=== PATIENT | male | born 1960 | race Caucasian/White ===

== ENCOUNTER → 2018-06-04 | Day surgery (SDC) | payer OTHER ==
[2018-06-01 11:24] LABS: BASOPHILS # (AUTO) 0.1 (0.0-0.1); BASOPHILS % 0.9 % (0.0-1.0); EOSINOPHILS # (AUTO) 0.3 (0.0-0.4); EOSINOPHILS % 3.4 % (0.0-6.0); HEMOGLOBIN 13.5 g/dL (14.0-18.0); LYMPHOCYTES # (AUTO) 3.2 (1.0-3.2); LYMPHOCYTES % 39.8 % (18.0-39.1); MEAN CORPUSCULAR HEMOGLOBIN 29.3 pg (28-32); MEAN CORPUSCULAR HGB CONC 32.9 g/dL (31-35); MEAN CORPUSCULAR VOLUME 89.1 fL (81-99); MONOCYTES # (AUTO) 0.6 (0.2-0.8); NEUTROPHILS # (AUTO) 3.9 (2.1-6.9); NEUTROPHILS % 48.7 % (38.7-80.0); PLATELET COUNT 212 x10e3/uL (140-360); RED CELL DISTRIBUTION WIDTH 14.1 % (11.7-14.4)
[~2018-06-04] MED LIST: ALPRAZOLAM0.5 MG PO; ATENOLOL PO; ATORVASTATIN CA20 MG PO; ATORVASTATIN CA40 MG PO; ESCITALOPRAM OX10 MG PO; FENTANYL CITRATE/PF 100MCG/2 ML INJ ONE; FLOMAX0.4 MG PO; HYOSCYAMINE SULFATE 0.5 MG/ML AMP ONE; LEVAQUIN500 MG PO; LIDOCAINE HCL 2% LOCAL INJ 5 ML SDV VIAL INJ ONE; LISINOPRIL10 MG PO; MIDAZOLAM HCL 2 MG/2 ML VIAL ONE; PLAVIX75 MG PO; PROPOFOL IV EMULSION 10 MG/ML 50 ML VIAL ONE; TENORMIN100 MG PO; TYLENOL WITH C1 EACH PO; VESICARE5 MG; XANAX1 MG PO; ZESTRIL20 MG PO
--- NOTE | 2018-06-04 12:24 | Operative Report ---
DATE OF PROCEDURE: June 04, 2018 REFERRING PHYSICIAN: Dr. Gefof Alcocer PROCEDURES PERFORMED 1. Esophagogastroduodenoscopy with biopsies. 2. Colonoscopy with polypectomy and biopsies. INDICATIONS FOR EGD: Dyspepsia. INDICATIONS FOR COLONOSCOPY: Persistent diarrhea and history of Crohn disease, rule out IBD exacerbation. MEDICATION: Patient was done under MAC. Please see anesthesiologist's note. PROCEDURE: With the patient in the left lateral decubitus position, the flexible fiberoptic Olympus gastroscope was introduced into the esophagus under direct visualization without any difficulty. There was some patchy erythema noted in the distal esophagus. The scope was then advanced with ease into the stomach. Mucosa overlying the antrum and the body revealed some patchy erythema and low-grade edema, and biopsies were obtained and sent to stain for H. pylori. The pylorus was of normal contour and shape. It was intubated with ease, and the scope was advanced all the way to the 2nd portion of the duodenum. Some aphthous-like ulcers were noted in the bulb and the proximal 2nd portion. Biopsies were obtained from the proximal 2nd portion to rule out sprue. The scope was then withdrawn back into the stomach and retroflexed. Mucosa overlying the fundus and the cardia appeared to be within normal limits. The scope was then straightened out. It was subsequently withdrawn. Patient tolerated the procedure well. IMPRESSION 1. Distal esophagitis. 2. Gastritis, biopsied. Biopsies sent to stain for H. pylori. 3. Duodenal ulcers, aphthous-like, bulb and proximal 2nd portion. 4. Rule out sprue. PLAN: Follow up histology. Initiate Protonix 40 mg 1 p.o. q.a.m. a.c. The patient was then turned around. After adequate lubrication of the anal canal, a flexible fiberoptic Olympus colonoscope was inserted into the rectum with ease and advanced all the way to the ileocolic anastomosis. There were some aphthous-like ulcerations noted at the anastomosis, and biopsies were obtained. The scope was then advanced into the terminal ileum, and it was ulcerated and biopsies were obtained. The scope was then withdrawn back into the colon. It was then withdrawn slowly, and mucosa overlying the transverse colon grossly appeared to be within normal limits. An approximately 8-mm sessile polyp was snared from the transverse colon. Mucosa overlying the left colon revealed some patchy mild inflammatory changes, and biopsies were obtained. One polyp was hot biopsied from the sigmoid colon. One polyp was hot biopsied from the rectum. The scope was then retroflexed into the distal rectum, and small internal hemorrhoids were noted, none of which was actively bleeding. The scope was then straightened out. It was subsequently withdrawn after securing an adequate stool specimen that was sent for the appropriate stool studies. Patient tolerated the procedure well. IMPRESSION 1. Ileitis, biopsied. 2. Aphthous-like ulcers at the ileocolic anastomosis. Biopsies were obtained. 3. Transverse colon polyps, snared. 4. Mild, patchy, left-sided colitis. 5. Sigmoid colon polyp, hot biopsied. 6. Rectal polyp, hot biopsied. 7. Internal hemorrhoids, none actively bleeding. PLAN: Follow up histology. Follow up stool studies. Check CRP and sed rate. Initiate VSL #3 one p.o. daily and Bentyl 20 mg 1 p.o. t.i.d. Start Imuran 50 mg 1 p.o. daily pending TPMT level. Patient might benefit from a followup colonoscopy in 3 years. Job#: [id number] cc:JENN ALCOCER DO
[2018-06-04 14:50] LABS: C DIFFICILE TOXIN A&B AMP PROB NEGATIVE (NEGATIVE); WBC,FECAL (FECAL LACTOFERRIN) POSITIVE (NEGATIVE)
== END | disposition home or self-care (01) ==
LOC: OR 09:13
PROVIDERS: ATTEND Internal Medicine Gastroenterology
DX: K51.50 Left sided colitis without complications (principal); D12.3 Benign neoplasm of transverse colon; D12.5 Benign neoplasm of sigmoid colon; D12.8 Benign neoplasm of rectum; K29.70 Gastritis, unspecified, without bleeding; K20.9 Esophagitis, unspecified; K26.9 Duodenal ulcer, unspecified as acute or chronic, without hemorrhage or perforation; Z98.0 Intestinal bypass and anastomosis status; K64.8 Other hemorrhoids; I10 Essential (primary) hypertension; Z88.6 Allergy status to analgesic agent; Z01.810 Encounter for preprocedural cardiovascular examination; Z01.812 Encounter for preprocedural laboratory examination; Z79.02 Long term (current) use of antithrombotics/antiplatelets; Z68.36 Body mass index [BMI] 36.0-36.9, adult; Z86.73 Personal history of transient ischemic attack (TIA), and cerebral infarction without residual deficits; Z87.891 Personal history of nicotine dependence; Z83.79 Family history of other diseases of the digestive system
CPT/HCPCS: 36415 ×2; 43239; 45380; 45384; 45385; 83630; 83993; 85025; 85651; 86140; 87045; 87177; 87328; 87493; 93005; J1980; J2001; J2250; 45378

== ENCOUNTER 2019-07-25 17:01 | Inpatient (IN) | payer OTHER ==
[~2019-07-25] VITALS: Ht 172.7 cm; Wt 111.6 kg
[~2019-07-25 17:01] MED LIST changes: -FENTANYL CITRATE/PF 100MCG/2 ML INJ ONE; -HYOSCYAMINE SULFATE 0.5 MG/ML AMP ONE; -LIDOCAINE HCL 2% LOCAL INJ 5 ML SDV VIAL INJ ONE; -MIDAZOLAM HCL 2 MG/2 ML VIAL ONE; -PROPOFOL IV EMULSION 10 MG/ML 50 ML VIAL ONE
--- OUTSIDE RECORDS SUMMARY | 2019-07-25 17:06 | XMS REPORT ---
Author Author [facility] Address Unknown Phone Unavailable Care Team Providers Care Software Developer Mid Level Name Role Phone Unavailable Unavailable Payers Payer Name Policy Type Policy Number Effective Date Expiration Date Problems This patient has no known problems. Allergies, Adverse Reactions, Alerts Allergy Name Allergy Type Status Severity Reaction(s) Onset Date Inactive Date Treating Clinician Comments No Known Drug Allergies DA Active U 2019-06-05 00:00:00 No Known Allergies DA Active U 2015-11-05 00:00:00 Medications This patient has no known medications.
[2019-07-25] MEDS ORDERED: SODIUM CHLORIDE 0.9% 1000ML 2,000 ML ONE (17:22)
[2019-07-25] MEDS ORDERED: SODIUM CHLORIDE 0.9% 1000ML 1,000 ML IV ONE ×2 (17:30)
[2019-07-25 17:34] LABS: BASOPHILS % 0.3 % (0.0-1.0); EOSINOPHILS # (AUTO) 0.1 (0.0-0.4); EOSINOPHILS % 1.1 % (0.0-6.0); HEMATOCRIT 34.1 % (38.2-49.6); HEMOGLOBIN 11.5 g/dL (14.0-18.0); LYMPHOCYTES # (AUTO) 3.3 (1.0-3.2); LYMPHOCYTES % 26.9 % (18.0-39.1); MEAN CORPUSCULAR HEMOGLOBIN 29.6 pg (28-32); MEAN CORPUSCULAR HGB CONC 33.7 g/dL (31-35); MEAN CORPUSCULAR VOLUME 87.7 fL (81-99); MONOCYTES # (AUTO) 0.7 (0.2-0.8); MONOCYTES % 5.3 % (4.4-11.3); NEUTROPHILS % 65.9 % (38.7-80.0); PLATELET COUNT 215 x10e3/uL (140-360); RED BLOOD COUNT 3.89 x10e6/uL (4.3-5.7); RED CELL DISTRIBUTION WIDTH 14.6 % (11.7-14.4)
--- NOTE | 2019-07-25 17:36 | NUR ---
PT PLACED IN TRENDELENDURG POSITION
[2019-07-25 17:54] LABS: ALBUMIN 3.8 g/dL (3.5-5.0); ALBUMIN/GLOBULIN RATIO 1.3 (0.8-2.0); ANION GAP 14.1 mmol/L (8-16); CALCIUM 9.1 mg/dL (8.4-10.2); CREATININE, SERUM 4.01 mg/dL (0.72-1.25); POTASSIUM 4.1 mmol/L (3.5-5.1)
[2019-07-25 18:19] LABS: CREATINE KINASE MB 2.6 ng/mL (0-5.0)
[2019-07-25] MEDS ORDERED: LIDOCAINE HCL 1% LOCAL INJ 20 ML VIAL ONE (18:32)
--- NOTE | 2019-07-25 18:40 | NUR ---
per pt he smoked a little pot prior to seeing his dr
--- NOTE | 2019-07-25 19:11 | NUR ---
PATIENT REFUSING TO HAVE DAVIS CATH, DISCUSSED THIS IN DETAIL WITH DR CARLSON, EXPRESSED CONCERN FOR NON-URINATION SINCE BEING IN THIS HOSPITAL
[2019-07-25 19:22] LABS: B-TYPE NATRIURETIC PEPTIDE2 < 10.0 pg/mL (0-100)
[2019-07-25] MEDS ORDERED: ONDANSETRON HCL INJ 2MG/ML 2ML 2 MG/ML VIAL IV PRN (19:45)
[2019-07-25] MEDS ORDERED: SODIUM CHLORIDE 0.9% 1000ML 1,000 ML IV STA (19:52)
--- NOTE | 2019-07-25 20:06 | NUR ---
BEDSIDE BLADDER SCAN DONE=75CC TOTAL IN BLADDER, ORDERS OBTAINED FOR DAVIS CATH SECONDARY TO ACUTE KIDNEY FAILURE, 18FR URETRHAL COUDE INSERTED, ONLY 75CC OUT, INFORMED DR WARD IN FULL, STERILE TECHNIQUE USED, PATIENT EXPERIENCED NO COMPLICATIONS IN PROCEDURE
[2019-07-25 20:14] LABS: BILIRUBIN,URINE NEGATIVE (NEGATIVE); CLARITY,URINE SL CLOUDY (CLEAR); COLOR,URINE YELLOW (YELLOW); KETONES,URINE NEGATIVE (NEGATIVE); LEUKOCYTE ESTERASE ,URINE NEGATIVE (NEGATIVE); NITRITE,URINE NEGATIVE (NEGATIVE); PROTEIN,URINE DIPSTICK NEGATIVE (NEGATIVE); URINE UROBILINOGEN 0.2 mg/dL (0.2 - 1)
[2019-07-25 20:26] LABS: AMORPHOUS SEDIMENT,URINE MODERATE (FEW); BACTERIA,URINE MODERATE /HPF; CALCIUM OXALATE CRYSTALS,UR FEW (FEW); EPITHELIAL CELLS,URINE FEW /LPF; MUCUS,URINE FEW (RARE)
[2019-07-25 20:57] LABS: ANION GAP 12.3 mmol/L (8-16); CALCIUM 8.3 mg/dL (8.4-10.2); CREATININE, SERUM 3.28 mg/dL (0.72-1.25); POTASSIUM 4.3 mmol/L (3.5-5.1)
[2019-07-25] MEDS ORDERED: HYDROCODONE/APAP 10MG-325MG TAB PO ONE (21:15)
--- NOTE | 2019-07-25 21:21 | Diagnostic Imaging Report ---
Examination: CT head without contrast Clinical Indication: Syncope. Technique: Transaxial noncontrast images from the skull base through the vertex were obtained. Sagittal and coronal reformatted images were done. Dose modulation, iterative reconstruction, and/or weight based adjustment of the mA/kV was utilized to reduce the radiation dose to as low as reasonably achievable. Comparison: None. Findings: Scalp: No abnormalities. Bones: Intact. No fractures. No blastic or lytic lesions. Brain sulci: Appropriate for patient's age. Ventricles: Normal in size and configuration. No hydrocephalus. . Extra-axial space: No abnormalities. Parenchyma: There are subtle patchy areas of low-attenuation within subcortical and periventricular white matter, nonspecific, but could represent microvascular ischemic disease. No masses, hemorrhage, or acute or chronic cortical based vascular insults. Suprasellar region: No abnormalities. Craniocervical junction: The foramen magnum is patent. No Chiari one malformation. Impression: 1. No acute intracranial finding. 2. Mild chronic microvascular ischemic change. Signed by: Dr. Palmira Roblero M.D. on 07/25/2019 9:18 PM
[2019-07-25 21:43] LABS: CREATININE,URINE RANDOM 118.46 mg/dL (63-166)
--- NOTE | 2019-07-25 21:49 | Diagnostic Imaging Report ---
EXAM: CT Abdomen and Pelvis WITHOUT contrast INDICATION: Urinary retention, renal insufficiency COMPARISON: None. TECHNIQUE: Abdomen and pelvis were scanned utilizing a multidetector helical scanner from the lung base to the pubic symphysis without administration of IV contrast. Absence of intravenous contrast decreases sensitivity for detection of focal lesions and vascular pathology. Coronal and sagittal reformations were obtained. Routine protocol was performed. IV CONTRAST: None ORAL CONTRAST: None COMPLICATIONS: None RADIATION DOSE: Total DLP: 784 mGy*cm Estimated effective dose: (DLP x 0.015 x size factor) mSv CTDIvol has been reviewed. It is below the limits set by the Radiation Protocol Committee (RPC). Dose modulation, iterative reconstruction, and/or weight based adjustment of the mA/kV was utilized to reduce the radiation dose to as low as reasonably achievable. FINDINGS: LINES and TUBES: Right common femoral central venous catheter, tip in the right external iliac vein.. LOWER THORAX: Fissural based 4 mm nodule in the left lower lung. Bibasilar atelectasis/scarring. HEPATOBILIARY: No focal hepatic lesions. No biliary ductal dilation. GALLBLADDER: Contracted. No radio-opaque stones or sludge. No wall thickening. SPLEEN: No splenomegaly. PANCREAS: No focal masses or ductal dilatation. ADRENALS: No adrenal nodules KIDNEYS/URETERS: No hydronephrosis. No cystic or solid mass lesions. A punctate nonobstructive calculus in the left renal superior pole an additional punctate nonobstructive calculus in the right renal inferior pole. Trace bilateral perinephric fat stranding can be seen in renal insufficiency or senescence. GI TRACT: No abnormal distention, wall thickening, or evidence of bowel obstruction. Surgical changes of right hemicolectomy with intact ileocolic anastomosis. PELVIC ORGANS/BLADDER: Mild prostatomegaly. Trace perivesicular fat stranding. Asymmetric prominence of the left seminal vesicle. LYMPH NODES: Slightly enlarged 1.2 cm left obturator lymph node (series 3 image 150). VESSELS: There is mild atherosclerotic disease in the aorta and major arterial branches. PERITONEUM / RETROPERITONEUM: No free air or fluid. BONES: Degenerative changes in the spine and sacroiliac joints.. SOFT TISSUES: Intact ventral midline laparotomy incision scar. IMPRESSION: 1. Trace perivesicular fat stranding can be seen with urinary bladder cystitis. Correlate with urinalysis. 2. Mild prostatomegaly, asymmetric prominence of the left seminal vesicle, and slight enlargement of a left pelvic sidewall lymph node. Recommend clinical evaluation for prostate malignancy. Signed by: Kali Ventura DO on 07/25/2019 9:46 PM
[2019-07-25 21:59] VITALS: BP 121/58
--- NOTE | 2019-07-25 22:46 | Diagnostic Imaging Report ---
X-RAY PELVIS AP 1 VIEW HISTORY: Pain. COMPARISON: Abdominal pelvic CT 07/25/2019 FINDINGS: Right femoral central venous catheter, tip in the right mid pelvis. Bones: No acute displaced fracture. Osseous alignment is within normal limits. Joints: Degenerative disc and facet changes in the lower lumbar spine. Osteophytes of the sacroiliac joints. Soft tissues: Enthesopathic changes about the pelvis. IMPRESSION: No acute radiographic osseous abnormality. Degenerative changes in the lower lumbar spine and pelvis. Signed by: Kali Ventura DO on 07/25/2019 10:42 PM
[2019-07-25 23:41] VITALS: BP 128/64
[2019-07-26] VITALS (9 sets, daily range): BP systolic 89–128; BP diastolic 42–64
[2019-07-26] MEDS ORDERED: DIPHENHYDRAMINE HCL 25 MG CAP PO ONE (02:15)
[2019-07-26] MEDS ORDERED: SODIUM CHLORIDE 0.9% 1000ML 1,000 ML ONE (04:36)
[2019-07-26 05:38] LABS: BASOPHILS % 0.4 % (0.0-1.0); EOSINOPHILS # (AUTO) 0.1 (0.0-0.4); EOSINOPHILS % 1.5 % (0.0-6.0); HEMATOCRIT 30.8 % (38.2-49.6); HEMOGLOBIN 9.8 g/dL (14.0-18.0); LYMPHOCYTES # (AUTO) 4.1 (1.0-3.2); LYMPHOCYTES % 44.9 % (18.0-39.1); MEAN CORPUSCULAR HGB CONC 31.8 g/dL (31-35); MEAN CORPUSCULAR VOLUME 91.1 fL (81-99); MONOCYTES # (AUTO) 0.4 (0.2-0.8); MONOCYTES % 4.1 % (4.4-11.3); NEUTROPHILS # (AUTO) 4.4 (2.1-6.9); NEUTROPHILS % 48.9 % (38.7-80.0); PLATELET COUNT 167 x10e3/uL (140-360); RED BLOOD COUNT 3.38 x10e6/uL (4.3-5.7); RED CELL DISTRIBUTION WIDTH 14.5 % (11.7-14.4)
[2019-07-26 06:04] LABS: ALBUMIN 2.9 g/dL (3.5-5.0); ALBUMIN/GLOBULIN RATIO 1.2 (0.8-2.0); ANION GAP 11.3 mmol/L (8-16); CREATININE, SERUM 2.6 mg/dL (0.72-1.25); MAGNESIUM 1.4 MG/DL (1.3-2.1); PHOSPHORUS 4.5 MG/DL (2.3-4.7); POTASSIUM 4.3 mmol/L (3.5-5.1)
[2019-07-26] MEDS ORDERED: SODIUM BICARBONATE 8.4% 150 ML in DEXTROSE 5% 1,000 ML IV ONE (08:00)
--- NOTE | 2019-07-26 11:10 | Diagnostic Imaging Report ---
EXAM: Renal Ultrasound INDICATION: ^ACUTE RENAL FAILURE ^[id number] ^0805 ^Y COMPARISON: CT abdomen and pelvis of 07/25/2019 TECHNIQUE: Transverse and longitudinal images of the kidneys and bladder were obtained. FINDINGS: Right Kidney: Length: 11.9 cm Appearance: Normal echogenicity. Collecting system: No hydronephrosis Stones: None Cyst/Mass: None Left Kidney: Length: 11.7 cm Appearance: Normal echogenicity. Collecting system: No hydronephrosis Stones: None Cyst/Mass: None Bladder: No mass or calculi. Bilateral ureteral jets seen. Prevoid volume estimate of 324.2 cc. IMPRESSION: No hydronephrosis. 2 mm right and left nonobstructing renal calculi seen on prior CT of 07/25/2019 are not not well visualized on this sonographic exam. Signed by: Jessika Nava MD on 07/26/2019 11:07 AM
--- NOTE | 2019-07-26 16:18 | Consultation ---
DATE OF CONSULTATION: 07/26/2019 REQUESTING PHYSICIAN: Saturnino Wood MD. REASON FOR CONSULTATION: Kidney injury. Thank you for allowing us to participate in Mr. Rangel's care. HISTORY OF PRESENT ILLNESS: This is a 59-year-old male as far as we know in 2016, his creatinine was about 1-1.2 mg%. He has a history of Crohn disease requiring at least two surgeries including bowel resection and appendectomy. He had been feeling nauseated and vomiting, and recently had his Humira dose about 2-3 days ago. No recent NSAID noted. He had been on lisinopril for hypertension. He was near to doctor's office, felt faint, collapsed. He has chronic diarrhea that is still not controlled according to him. No blood in the stools. Upon evaluation here, it was felt that he was volume depleted. Creatinine was 4. Serum CO2 was 18. Potassium was normal. Phosphorus was 4.5, magnesium is 1.4. PAST HISTORY: Crohn disease, remote history of NSAID use, Humira ongoing, status post knee surgery, and hypertension. HOME MEDICATIONS: 1. Xanax 1 mg p.r.n. 2. Atorvastatin 40 mg a day. 3. Plavix 75 mg a day. 4. Lisinopril 40 mg p.o. daily. 5. Escitalopram 10 mg a day. 6. Currently also getting Zofran. SOCIAL HISTORY: Does not abuse alcohol or smoke. Lives with family. FAMILY HISTORY: No kidney problems. REVIEW OF SYSTEMS: CONSTITUTIONAL: Feels weak. GI: Nausea, vomiting somewhat settled. Still has diarrhea. No abdominal pain. CARDIAC: Denies any syncope. : Continues to make urine. MUSCULOSKELETAL: No pain or arthralgias, postop knee pain is improving. HEENT: No recent changes in vision. NEURO: Fell lightheaded and had near-syncope. PHYSICAL EXAMINATION: GENERAL: Lying in bed, no distress. VITAL SIGNS: Temperature is 96.7, pulse 52, blood pressure 102/52. HEENT: Atraumatic. NECK: Veins are flat. CHEST: Clear bilaterally. Breath sounds equal. Cardiac exam normal heart tones. Rhythm sounds regular. ABDOMEN: Soft. All laparotomy scars seen. Bowel sounds are heard. SKIN: Decreased turgor. NEUROLOGIC: Alert, appropriate. Speech is normal. LABORATORY DATA: Creatinine is coming down to 0.6 cm. CO2 of 17, K of 4.3. A CT scan did not show any hydronephrosis. Calcium was 8.0. ASSESSMENT: 1. Acute kidney injury. 2. Volume depletion. 3. Unknown if he has developed any interval chronic kidney disease. 4. Metabolic acidosis. PLAN: Change IV fluids to sodium bicarbonate and D5 water. Hold the JV inhibitor. A.m. chemistries. Avoid NSAIDs and other nephrotoxins. Of note, the urinalysis plan will follow along. Brian Barros MD VKK/MODL /[id number] MTDD
--- NOTE | 2019-07-26 20:40 | NUR ---
Paged Dr. Adhikari to get ordered for sleeping pills for patient. Waiting for MD'S call back @this time.
[2019-07-27] VITALS (7 sets, daily range): BP systolic 99–147; BP diastolic 42–65
[2019-07-27] MEDS ORDERED: ALPRAZOLAM 1 MG TAB PO ONE (00:15)
[2019-07-27] MEDS ORDERED: PANTOPRAZOLE 40 MG 10ML VIAL IV STA (00:16)
[2019-07-27] MEDS ORDERED: DICYCLOMINE HCL 20 MG TAB PO STA (00:20)
[2019-07-27] MEDS ORDERED: DICYCLOMINE HCL 20 MG TAB ONE (00:33)
[2019-07-27 05:23] LABS: BASOPHILS # (AUTO) 0.1 (0.0-0.1); BASOPHILS % 0.8 % (0.0-1.0); EOSINOPHILS # (AUTO) 0.2 (0.0-0.4); EOSINOPHILS % 2.9 % (0.0-6.0); HEMATOCRIT 31.6 % (38.2-49.6); HEMOGLOBIN 10.2 g/dL (14.0-18.0); LYMPHOCYTES # (AUTO) 3.2 (1.0-3.2); LYMPHOCYTES % 43.7 % (18.0-39.1); MEAN CORPUSCULAR HEMOGLOBIN 28.8 pg (28-32); MEAN CORPUSCULAR HGB CONC 32.3 g/dL (31-35); MEAN CORPUSCULAR VOLUME 89.3 fL (81-99); MONOCYTES # (AUTO) 0.4 (0.2-0.8); MONOCYTES % 5.4 % (4.4-11.3); NEUTROPHILS # (AUTO) 3.4 (2.1-6.9); NEUTROPHILS % 47.1 % (38.7-80.0); PLATELET COUNT 180 x10e3/uL (140-360); RED BLOOD COUNT 3.54 x10e6/uL (4.3-5.7); RED CELL DISTRIBUTION WIDTH 14.6 % (11.7-14.4)
[2019-07-27 05:50] LABS: ANION GAP 14.2 mmol/L (8-16); CALCIUM 8.4 mg/dL (8.4-10.2); CREATININE, SERUM 1.71 mg/dL (0.72-1.25); MAGNESIUM 1.4 MG/DL (1.3-2.1); POTASSIUM 4.2 mmol/L (3.5-5.1)
--- NOTE | 2019-07-27 07:05 | NUR ---
Report given to oncoming NASRIN Grayson.
[2019-07-27] MEDS: DICYCLOMINE HCL 20 MG TAB PO SCH ×4 (08:25→21:13)
[2019-07-27] MEDS ORDERED: PANTOPRAZOLE 40 MG 10ML VIAL IV SCH (09:00)
[2019-07-27] MEDS ORDERED: VANCOMYCIN 1GM/NS 250 ML 250 ML IV ONE (12:45)
[2019-07-27] MEDS: CEFTRIAXONE SOD 1 GM/NS 50 ML 50 ML IV SCH (14:44)
[2019-07-27] MEDS: SODIUM CHLORIDE 0.9% 1000ML 1,000 ML IV SCH ×2 (14:44→23:44)
[2019-07-27] MEDS: ALPRAZOLAM 1 MG TAB PO PRN (22:25)
[2019-07-28] VITALS (7 sets, daily range): BP systolic 131–157; BP diastolic 60–74
[2019-07-28] MEDS: CEFTRIAXONE SOD 1 GM/NS 50 ML 50 ML IV SCH ×2 (00:10→13:35)
[2019-07-28] MEDS: CHOLESTYRAMINE 4 GM PACKET PO PRN ×2 (01:01→21:46)
[2019-07-28] MEDS: SODIUM CHLORIDE 0.9% 1000ML 1,000 ML IV SCH ×3 (04:45→21:51)
[2019-07-28 06:34] LABS: BASOPHILS % 0.5 % (0.0-1.0); EOSINOPHILS # (AUTO) 0.3 (0.0-0.4); EOSINOPHILS % 3.4 % (0.0-6.0); HEMATOCRIT 31.6 % (38.2-49.6); HEMOGLOBIN 10.2 g/dL (14.0-18.0); LYMPHOCYTES # (AUTO) 3.6 (1.0-3.2); LYMPHOCYTES % 47.2 % (18.0-39.1); MEAN CORPUSCULAR HEMOGLOBIN 28.7 pg (28-32); MEAN CORPUSCULAR HGB CONC 32.3 g/dL (31-35); MONOCYTES # (AUTO) 0.3 (0.2-0.8); MONOCYTES % 4.5 % (4.4-11.3); NEUTROPHILS # (AUTO) 3.4 (2.1-6.9); NEUTROPHILS % 44.1 % (38.7-80.0); PLATELET COUNT 193 x10e3/uL (140-360); RED BLOOD COUNT 3.55 x10e6/uL (4.3-5.7); RED CELL DISTRIBUTION WIDTH 14.6 % (11.7-14.4)
[2019-07-28 06:35] LABS: ALBUMIN/GLOBULIN RATIO 1.2 (0.8-2.0); CALCIUM 8.3 mg/dL (8.4-10.2); CREATININE, SERUM 1.51 mg/dL (0.72-1.25)
--- NOTE | 2019-07-28 06:55 | NUR ---
Report given to oncoming RN Tamar this time. Walking round done.
[2019-07-28] MEDS: PANTOPRAZOLE SOD 40 MG TABEC PO SCH (07:52)
[2019-07-28] MEDS: DICYCLOMINE HCL 20 MG TAB PO SCH ×4 (08:41→21:46)
--- NOTE | 2019-07-28 13:33 | NUR ---
RIGHT TLC DISCONTINUED. CATHETER INTACT. HELD PRESSURE X 5 MINUTES. APPLIED PRESSURE BANDAGE.
--- NOTE | 2019-07-28 14:50 | NUR ---
Visit made by the Spiritual Care Department Pastoral Visitor, Christian Anderson. PV provided pastoral presence, hospitality, and supportive listening. Pastoral Visitor informed pt/family of the scope of [facility] and availability. DAWIT WITT Youth Care Specialist Spiritual Care Department O: [phone] Pager: [phone] ([phone] number calling from)
--- NOTE | 2019-07-28 15:28 | NUR ---
PATIENT UP OUT OF BED TO SHOWER
[2019-07-28] MEDS: ALPRAZOLAM 1 MG TAB PO PRN (22:24)
[2019-07-29] MEDS: CEFTRIAXONE SOD 1 GM/NS 50 ML 50 ML IV SCH (00:01)
[2019-07-29 00:12] VITALS: BP 129/69
[2019-07-29 05:33] LABS: BASOPHILS % 0.5 % (0.0-1.0); EOSINOPHILS # (AUTO) 0.3 (0.0-0.4); EOSINOPHILS % 4.2 % (0.0-6.0); HEMATOCRIT 29.8 % (38.2-49.6); HEMOGLOBIN 9.6 g/dL (14.0-18.0); LYMPHOCYTES # (AUTO) 3.4 (1.0-3.2); LYMPHOCYTES % 43.9 % (18.0-39.1); MEAN CORPUSCULAR HGB CONC 32.2 g/dL (31-35); MONOCYTES # (AUTO) 0.4 (0.2-0.8); MONOCYTES % 5.4 % (4.4-11.3); NEUTROPHILS # (AUTO) 3.5 (2.1-6.9); NEUTROPHILS % 45.6 % (38.7-80.0); PLATELET COUNT 187 x10e3/uL (140-360); RED BLOOD COUNT 3.31 x10e6/uL (4.3-5.7); RED CELL DISTRIBUTION WIDTH 14.7 % (11.7-14.4)
[2019-07-29 06:05] VITALS: BP 117/50
[2019-07-29 07:10] LABS: FERRITIN 174.19 ng/mL (21.81-274.66)
--- NOTE | 2019-07-29 07:10 | NUR ---
Report given to oncoming nurse Renuka.
[2019-07-29 07:20] LABS: FOLATE 6.2 ng/mL (7.0-15.4)
[2019-07-29 07:46] LABS: ANION GAP 13.8 mmol/L (8-16); CREATININE, SERUM 1.32 mg/dL (0.72-1.25); POTASSIUM 3.8 mmol/L (3.5-5.1)
[2019-07-29] MEDS ORDERED: ONDANSETRON HCL 4 MG ORAL DISINTEGRATING TAB PO PRN (08:30)
[2019-07-29 08:55] VITALS: BP 117/50
[2019-07-29] MEDS ORDERED: CHOLESTYRAMINE 4 GM PACKET PO SCH (09:00)
[2019-07-29] MEDS: SODIUM CHLORIDE 0.9% 1000ML 1,000 ML IV SCH (09:07)
[2019-07-29] MEDS: DICYCLOMINE HCL 20 MG TAB PO SCH (09:08)
[2019-07-29] MEDS: PANTOPRAZOLE SOD 40 MG TABEC PO SCH (09:08)
--- NOTE | 2019-07-29 13:32 | Progress Note ---
DATE: 07/29/2019 SUBJECTIVE: Feeling better. Renal function has recovered, probably has chronic kidney disease stage 3 from nephrosclerosis. Serum CO2 tends to be low keeping with his Crohn disease, chronic diarrhea. I do not have a uric acid, but he mentioned that he does have frequent gout episodes perhaps more than 2 years. He is not on any allopurinol at this point. No recent kidney stones. He does not recall the composition of the stones. PHYSICAL EXAMINATION: GENERAL: Lying in bed, no distress. VITAL SIGNS: Temperature 97.9, pulse 97, and blood pressure 117/50. CHEST: Clear. EXTREMITIES: No edema. ABDOMEN: Benign. Laparotomy scar in place, which is old. ASSESSMENT: 1. Acute kidney injury, secondary to volume depletion. 2. Probable chronic kidney disease, stage 3 with hypertensive nephrosclerosis. 3. Chronic metabolic acidosis. 4. History of nephrolithiasis. 5. History of gout, recently. PLAN: 1. From Renal standpoint, okay to discharge. Keep well hydrated, at least 3 L fluid intake a day unless swelling develops. 2. Continue sodium bicarbonate 650 mg b.i.d. 3. Get uric acid checked. He will follow with Dr. Kwon and decide on allopurinol or similar drugs. 4. Avoid nephrotoxins such as mainly NSAID including indomethacin. 5. We can follow up in clinic in about 3 to 4 months. MD CYRUS Farias/HARPREET /[id number]
[2019-07-29] MEDS ORDERED: SODIUM BICARBONATE 650 MG TAB PO SCH (17:00)
== END 2019-07-29 12:30 | disposition home or self-care (01) | DRG 683 ==
LOC: ER 17:01 → ERHOLD 19:55 → IMCU 21:52
DX: N17.9 Acute kidney failure, unspecified (principal); E87.2 Acidosis; I12.9 Hypertensive chronic kidney disease with stage 1 through stage 4 chronic kidney disease, or unspecified chronic kidney disease; N18.3 Chronic kidney disease, stage 3 (moderate); M10.9 Gout, unspecified; Z87.442 Personal history of urinary calculi; E86.9 Volume depletion, unspecified
CPT/HCPCS: 36415; 36555; 36556; 51700; 70450; 72170; 74176; 76770; 80048; 80053; 81001; 82550; 82553; 82570; 82607; 82728; 82746; 83540; 83605; 83735; 83880; 83993; 84100; 84300; 84466; 84484; 85025; 85045; 87040; 87045; 87071; 87177; 87205; 87493; 93005; 99284; J0696; J2001; J2405; J3370; J7030; J7070

== ENCOUNTER → 2021-12-03 | Day surgery (SDC) | payer BC, OTHER ==
[~2021-12-03] MED LIST changes: +ACETAMINOPHEN COD PO; +ATENOLOL50 MG PO; +FENTANYL CITRATE/PF 100MCG/2 ML INJ ONE; +GLUCAGON FOR INJ 1 MG VIAL ONE; +HUMIRA40 MG/0.1 INJ; +HYDROXYCHLOROQ200 MG PO; +HYOSCYAMINE SULFATE 0.5 MG/ML INJ ONE; +MIDAZOLAM HCL 2 MG/2 ML VIAL ONE; +PANTOPRAZOLE SO40 MG PO
[2021-12-03 15:25] VITALS: BP 97/57
[2021-12-03 16:14] LABS: WBC,FECAL (FECAL LACTOFERRIN) NEGATIVE (NEGATIVE)
[2021-12-04 14:05] LABS: C DIFFICILE TOXIN A&B AMP PROB NEGATIVE (NEGATIVE)
== END | disposition home or self-care (01) ==
LOC: OR 13:01
PROVIDERS: ATTEND Internal Medicine Gastroenterology
DX: K52.9 Noninfective gastroenteritis and colitis, unspecified (principal); K63.5 Polyp of colon; K29.50 Unspecified chronic gastritis without bleeding; K21.00 Gastro-esophageal reflux disease with esophagitis, without bleeding; Z98.0 Intestinal bypass and anastomosis status; K62.89 Other specified diseases of anus and rectum; K64.8 Other hemorrhoids; Z71.3 Dietary counseling and surveillance; I10 Essential (primary) hypertension; E78.5 Hyperlipidemia, unspecified; F32.A Depression, unspecified; Z88.6 Allergy status to analgesic agent; Z01.810 Encounter for preprocedural cardiovascular examination; Z01.812 Encounter for preprocedural laboratory examination; Z20.822 Contact with and (suspected) exposure to COVID-19; Z79.02 Long term (current) use of antithrombotics/antiplatelets; Z79.899 Other long term (current) drug therapy; Z68.36 Body mass index [BMI] 36.0-36.9, adult; Z86.73 Personal history of transient ischemic attack (TIA), and cerebral infarction without residual deficits; Z83.79 Family history of other diseases of the digestive system
CPT/HCPCS: 43239; 45380; 45384; 83630; 83993; 87045; 87177; 87328; 87493; 93005; J1610; J1980; J2250; J3010; U0002; 45378

== ENCOUNTER → 2024-07-17 | Day surgery (SDC) | payer BC, OTHER ==
[2024-07-12 15:06] LABS: BASOPHILS # (AUTO) 0.1 (0.0-0.1); BASOPHILS % 0.6 % (0.0-1.0); EOSINOPHILS # (AUTO) 0.5 (0.0-0.4); EOSINOPHILS % 3.7 % (0.0-6.0); HEMATOCRIT 47.8 % (38.2-49.6); HEMOGLOBIN 15.1 g/dL (14.0-18.0); LYMPHOCYTES # (AUTO) 6.2 (1.0-3.2); MEAN CORPUSCULAR HGB CONC 31.6 g/dL (31-35); MEAN CORPUSCULAR VOLUME 94.8 fL (81-99); MONOCYTES # (AUTO) 0.6 (0.2-0.8); MONOCYTES % 4.6 % (4.4-11.3); NEUTROPHILS # (AUTO) 5.5 (2.1-6.9); NEUTROPHILS % 42.9 % (38.7-80.0); PLATELET COUNT 206 x10e3/uL (140-360); RED BLOOD COUNT 5.04 x10e6/uL (4.3-5.7); RED CELL DISTRIBUTION WIDTH 13.7 % (11.7-14.4); WHITE BLOOD COUNT 12.81 x10e3/uL (4.8-10.8)
[~2024-07-17] MED LIST changes: +EPHEDRINE SULFATE INJ 50 MG/ML VIAL ONE; +ESCITALOPRAM OX20 MG PO; -FENTANYL CITRATE/PF 100MCG/2 ML INJ ONE; -GLUCAGON FOR INJ 1 MG VIAL ONE; -HYOSCYAMINE SULFATE 0.5 MG/ML INJ ONE; +LIDOCAINE HCL 2% LOCAL INJ 5 ML SDV VIAL INJ ONE; +LISINOPRIL5 MG PO; -MIDAZOLAM HCL 2 MG/2 ML VIAL ONE; +PROPOFOL IV EMULSION 10 MG/ML 20 ML VIAL ONE; +[UNRECOGNIZED DRUG - OTHER]
[2024-07-17] MEDS: LACTATED RINGER'S 1,000 ML ONE (07:06)
[2024-07-17 09:40] VITALS: TEMP 97.8
[2024-07-17 10:10] VITALS: BP 114/78; PULSE 62; RESP 16; O2SAT 100
[2024-07-18 09:54] LABS: C-REACTIVE PROTEIN 1 mg/L (0-10)
[2024-07-20 19:09] LABS: ENDOMYSIAL ANTIBODIES, IGA Negative (Negative)
[2024-07-20 20:14] LABS: IMMUNOGLOBULIN A 400 mg/dL (61-437); TISSUE TRANSGLUTAMINASE IGA AB <2 U/mL (0-3)
== END | disposition home or self-care (01) ==
LOC: MERGE 06:34 → OR 06:34
PROVIDERS: ATTEND Internal Medicine Gastroenterology
DX: K50.90 Crohn's disease, unspecified, without complications (principal); Z98.0 Intestinal bypass and anastomosis status; K62.89 Other specified diseases of anus and rectum; K64.8 Other hemorrhoids; K21.9 Gastro-esophageal reflux disease without esophagitis; I10 Essential (primary) hypertension; N20.0 Calculus of kidney; F41.9 Anxiety disorder, unspecified; F32.A Depression, unspecified; F17.200 Nicotine dependence, unspecified, uncomplicated; Z01.810 Encounter for preprocedural cardiovascular examination; Z01.812 Encounter for preprocedural laboratory examination; Z79.899 Other long term (current) drug therapy; Z86.73 Personal history of transient ischemic attack (TIA), and cerebral infarction without residual deficits
CPT/HCPCS: 36415; 45380; 82784; 83516; 83630; 83993; 85025; 86140; 86256; 87045; 87177; 87324; 87328; 87449; 93005; J2001; J2704; J7121; 45378